=== PATIENT | female | born 1955 | race Caucasian/White ===

== ENCOUNTER 2016-10-01 15:00 | Inpatient (IN) | payer OTHER ==
--- NOTE | ~2016-10-01 | HP ---
Unit #: [id number] #: [id number] Patient: MILAGRO ASIF [id number] [place] [address] [id number] MR#: [id number] NAME: MILAGRO ASIF ROOM: P263 Age: 60 Sex: F Admission Date: 10/01/2016 : 1955 Attending Physician: Hoang Morales M.D. Admitting Physician: Hoang Morales M.D. Primary Care Physician: Kristan Florence M.D. HISTORY AND PHYSICAL HISTORY OF PRESENT ILLNESS Milagro is a 60 year old admitted to [address] [place] [address] with depression verbalizing wanting to hurt herself. PAST MEDICAL HISTORY Hyperlipidemia. PAST SURGICAL HISTORY 1. Cholecystectomy. 2. Tubal ligation. 3. Hiatal hernia repair. ALLERGIES Morphine. SOCIAL HISTORY She denies cigarettes, alcohol, and illicit drug use. FAMILY HISTORY Medically noncontributory. REVIEW OF SYSTEMS CONSTITUTIONAL: No fever or chills. HEENT: Denies any sore throat, ear pain or runny nose. CARDIOVASCULAR: Denies chest pain, irregular heart rhythm or palpitations. CHEST: Denies shortness of breath or cough. No hemoptysis. GASTROINTESTINAL: Denies nausea, vomiting, diarrhea or chronic constipation. ENDOCRINE: Denies history of increased thirst or urination. No recent significant weight loss or gain. GENITOURINARY: Denies dysuria, frequency, or hematuria. SKIN: Denies any rashes. HEMATOLOGIC: Denies history of increased bleeding or bruising. MUSCULOSKELETAL: Denies any hot, swollen joints. No generalized muscle pain. NEUROLOGIC: Denies problems with vision or speech. No frequent, severe headaches. No numbness, tingling or weakness in any extremities. Denies loss of bladder or bowel control. CURRENT MEDICATIONS 1. Zoloft 200 mg q.h.s. 2. Lipitor 40 mg q.h.s. 3. Neurontin 300 mg t.i.d. Unit #: [id number] #: [id number] Patient: MILAGRO ASIF 4. Vistaril 50 mg t.i.d. 5. Nicotine patch 21 mg q. day. 6. Protonix 40 mg q. day. 7. Desyrel p.r.n. 8. Milk of Magnesia p.r.n. 9. Maalox p.r.n. 10. Tylenol p.r.n. 11. Albuterol nebs q . 4 hours p.r.n. 12. Percocet 10/325 1 tab q.i.d. p.r.n. PHYSICAL EXAMINATION GENERAL: Alert, well nourished. No apparent distress. VITAL SIGNS: Blood pressure 140/84, heart rate 88, respirations 16, and temperature 98.6. WEIGHT: 158. HEIGHT: 5 feet 7 inches. SKIN: Warm and dry without rash or lesion. HEENT: Normocephalic. TMs not viewed. Oral and nasal passages clear. Conjunctivae clear. PERRLA. EOMs intact. NECK: Supple without lymphadenopathy or thyromegaly. HEART: Regular rate and rhythm without murmur. LUNGS: Clear. ABDOMEN: Soft, nontender. : Not done. EXTREMITIES: No evidence of cyanosis, clubbing or edema. Moves all without focal deficit. NEUROLOGICAL: Grossly within normal limits. Cranial Nerves: II: Visual green are intact. III, IV AND : Extraocular movements are intact. Pupils are equal, round and reactive to light. V: Facial sensation is grossly normal. VII: Facial movements and expression are normal. VIII: Auditory acuity grossly intact. IX, X: Uvula is midline. Phonation is normal. XI: Patient shrugs shoulders and turns head normally. XII: Tongue protrudes in the midline. Sensory and Motor Function: Sensory and motor sensation is grossly normal. Motor: moves all extremities well. Coordination: Gait is normal. Deep Tendon Reflexes: Intact. IMPRESSION Psychiatric admission. RECOMMENDATIONS PSYCHIATRIC: Per psychiatrist. MEDICAL: I see no contraindication to participate in this facility's activities. MEDICAL PROGNOSIS Good. MEDICAL CONDITION Stable. Dictated by... Chichi Francisco P.A.-C. for Unit #: [id number] #: [id number] Patient: MILAGRO ASIF Angel Camacho/lisa TD: 10/02/2016 15:22 JOB #: [id number] HISTORY AND PHYSICAL Page 1 of 1 X Chichi Francisco HISTORY AND PHYSICAL
--- NOTE | ~2016-10-01 | DS ---
Unit #: [id number] #: [id number] Patient: ARNOL ASIF [id number] [facility] [address] [place] [address] [id number] MR#: [id number] NAME: ARNOL ASIF. ROOM: [facility] Age: 60 Sex: F Admission Date: 10/01/2016 : 1955 Discharge Date: 10/03/2016 Attending Physician: Hoang Morales M.D. Primary Care Physician: Kristan Florence M.D. DISCHARGE SUMMARY REASON FOR ADMISSION Depression. DIAGNOSTIC STUDIES LABORATORY RESULTS: Unremarkable. HOSPITAL COURSE The patient was admitted to inpatient unit on 10/01/2016 and discharged on 10/03/2016. The patient was treated on the inpatient unit with group therapy, individual therapy, and medication management. The patient was able to maintain safe behavior. Denied any suicidal or homicidal ideation. The patient was subsequently discharged with a plan to follow up in outpatient program. DISCHARGE MEDICATIONS Trazodone 100 mg at bedtime for sleep, Zoloft 200 mg at bedtime for depression, Vistaril 50 mg t.i.d. for anxiety, and Neurontin 300 mg t.i.d. for anxiety symptom. DISCHARGE DIAGNOSES Psychiatric: Major depressive disorder, recurrent, moderate, F33.2 and anxiety disorder, not otherwise specified, F41.9. Secondary diagnosis: Deferred. Medical diagnoses: Hypertension, type 2 diabetes mellitus, and high cholesterol. Stressors: Psychosocial stressors. DISCHARGE INSTRUCTIONS The patient to follow up in outpatient clinic as per social science instructor. CONDITION ON DISCHARGE The patient was pleasant and cooperative. Denied any psychotic symptom or any suicidal ideation. PROGNOSIS Guarded. DIET AND ACTIVITY As tolerated. Unit #: [id number] #: [id number] Patient: ARNOL ASIF Dictated by... Hoang Morales M.D. SZC/modl TD: 10/04/2016 22:25 JOB #: [id number] DISCHARGE SUMMARY Page 1 of 1 X Hoang Morales MD DISCHARGE SUMMARY
--- NOTE | ~2016-10-01 | PN ---
Unit #: [id number] #: [id number] Patient: ARNOL ASIF [id number] [facility] [address] [place] [address] [id number] MR#: [id number] NAME: ARNOL ASIF. ROOM: [facility] Age: 60 Sex: F Admission Date: 10/01/2016 : 1955 Attending Physician: Hoang Morales M.D. Admitting Physician: Hoang Morales M.D. Primary Care Physician: Angel Solorio PROGRESS NOTES DATE OF SERVICE 10/02/2016 DISCUSSION Ms. Humphrey is a 60-year-old female seen on 10/02/2016. Patient interviewed, chart reviewed, I obtained information from nursing staff. Patient continues to report feeling sad, depressed, anxious, withdrawn, isolative, flat affect. Dressed in hospital attire. COMPLETE REVIEW OF SYSTEMS Unremarkable. MENTAL STATUS EXAMINATION GENERAL APPEARANCE: Patient dressed casually. ATTENTION SPAN AND CONCENTRATION: Fair. Oriented in time, place and person. MOOD AND AFFECT: Sad, depressed. SPEECH: Monotone. THOUGHT PROCESS: [facility]. Patient denied any thoughts of harming others, but still having passive SI, withdrawn, isolative, anxious. RECENT AND REMOTE MEMORY: Poor. INSIGHT AND JUDGMENT: Poor. DIAGNOSIS Major depressive disorder, recurrent, severe Anxiety disorder, NOS ASSESSMENT/PLAN Advised to continue with current medication and therapeutic protocol. If needed, consider further adjustment in medication. Dictated by... Angel Richey/rai TD: 10/02/2016 20:20 JOB #: [id number] Unit #: [id number] #: [id number] Patient: ARNOL ASIF EMELY PROGRESS NOTES Page 1 of 1 X Hoang Morales MD X PROGRESS NOTE
--- NOTE | ~2016-10-01 | PA ---
Unit #: [id number] #: [id number] Patient: ARNOL ASIF [id number] [facility] [address] [place] [address] [id number] MR#: [id number] NAME: ARNOL ASIF. ROOM: [facility] Age: 60 Sex: F Admission Date: 10/01/2016 : 1955 Date of Assessment: 10/02/2016 Attending Physician: Hoang Morales M.D. Admitting Physician: Hoang Morales M.D. Primary Care Physician: Kristan Florence M.D. PSYCHIATRIC ASSESSMENT INFORMANTS The patient's reliability, fair; chart reliability, good. CHIEF COMPLAINT Depression. HISTORY OF PRESENT ILLNESS Ms. Humphrey is a 60-year-old female, presented with the above-mentioned complaint. The patient was at [facility] on the eighth floor on a 72-hour hold for suicide attempt. The patient took overdose of amitriptyline. The patient reported that she was found unresponsive at home and family member reported the patient was surrounded by empty bottles and a suicide note. The patient reported that she is stressed out because grandson's mother would not allow her to see her grandchild. The patient feels that she has no support. The patient reported suicidal ideation, feeling sad, depressed, anxious. The patient denied any homicidal ideation or psychotic symptom. Denied any use of drugs or alcohol. Needing inpatient admission at this time for psychiatric stabilization. PAST PSYCHIATRIC HISTORY Remarkable for history of previous treatment at [facility] for suicide attempt. No details known at this time. FAMILY HISTORY AND SOCIAL HISTORY The patient has a poor support from family. History of depression in mother. No known history of any abuse. MEDICAL HISTORY Remarkable for hypertension, diabetes mellitus type 2, high cholesterol. Musculoskeletal; muscle strength and tone, no atrophy or abnormal movement. Gait normal. MEDICATION HISTORY The patient is on insulin, amlodipine, Levemir, Zofran, hydralazine, baclofen, Prilosec, Lipitor, lorazepam, acetaminophen, amitriptyline, and sertraline. ALLERGIES No known drug allergies. SUBSTANCE ABUSE HISTORY None. Unit #: [id number] #: [id number] Patient: ARNOL ASIF REVIEW OF SYSTEMS HEENT: Eyes, clear. Ears, nose, mouth, and throat; clear. CARDIOVASCULAR: Unremarkable. RESPIRATORY: Unremarkable. GI: Unremarkable. : Unremarkable. SKIN: Unremarkable. LYMPH NODE: Unremarkable. NEUROLOGIC: Unremarkable. ENDOCRINE: Unremarkable. HEMATOLOGIC: Unremarkable. ALLERGIC/IMMUNOLOGIC: Unremarkable. MUSCULOSKELETAL: Muscle strength and tone, no atrophy or abnormal movement. Gait normal. MENTAL STATUS EXAMINATION CONSTITUTIONAL: Measurement of vital signs; temperature 98.3, pulse 88, respirations 16, oxygen saturation 98%, and blood pressure 140/82. Height 5 feet 7 inches, weight 158 pounds. GENERAL APPEARANCE: The patient dressed casually. The patient did not show any facial deformity. MUSCULOSKELETAL: Please see above. PSYCHIATRIC EXAMINATION Description of speech; regular rate, normal volume, normal articulation, coherent. Description of thought process, goal directed. Description of association, intact. Description of abnormal psychotic thinking; the patient denied any hallucination or delusions, but mood lability, sad, depressed. Description of the patient's judgment; concerning everyday activity, poor. Social situation, poor. Concerning psychiatric condition, poor. Complete mental status examination; oriented in time, place, and person. Recent and remote memory, fair. Attention span and concentration, fair. Language, able to name object and repeat phrases. Fund of knowledge, aware of current event and passive vocabulary intact. Mood and affect, sad and dysphoric. Insight and judgment, fair to poor. ASSETS AND LIABILITIES Assets; the patient is articulate and able to take care of her ADL. Liability; history of depression. ADMITTING DIAGNOSES Psychiatric: 1. Major depressive disorder, recurrent, severe, F33.2. 2. Anxiety disorder, not otherwise specified, F41.9. Secondary diagnosis: Deferred. Medical diagnoses: Hypertension, diabetes type 2, high cholesterol. Stressors: Psychosocial stressors. PSYCHIATRIC PLAN AND TREATMENT GOAL 1. Advised to admit the patient on the inpatient unit. Provide safe, supportive, and structured environment. 2. Ordered labs; CBC, CMP, UA, and UDS. 3. Precaution for self-harm. Unit #: [id number] #: [id number] Patient: ARNOL ASIF 4. The patient to attend all the programming with group therapy, individual therapy, family therapy if possible. 5. Continue with current medication with a plan to consider adding Neurontin 300 mg t.i.d. for anxiety, Vistaril 50 mg t.i.d. Advised to discontinue Klonopin. Zoloft increased to 200 mg at bedtime. Continue with the other medication. 6. Monitor for side effects for any sedation and accordingly adjust the medication. Treatment goal to attain euthymic mood, gain insight into her problem, and learn coping skills. DISCHARGE PLAN Plan to stabilize the patient and consider followup in outpatient program. ESTIMATED LENGTH OF STAY 2 weeks. Dictated by... Angel Richey/ethan TD: 10/03/2016 02:53 JOB #: [id number] PSYCHIATRIC ASSESSMENT Page 1 of 1 X Hoang Morales MD X PSYCHIATRIC ASSESSMENT
[~2016-10-01 15:00] MED LIST: ALPRAZOLAM PO; ASPIRIN81 M2 PO; AZULFIDINE500 M1 PO; BUSPAR PO; CITRACAL + D M1 EACH PO; CITRACAL200 MG; COMBIVENT U/D3 ML INH; COREG3.125 MG PO; CRESTOR PO; CULTURELLE CAP1 EACH PO; EC-NAPROSYN500 MG PO; ENBREL50 MG/ML SQ; FOLIC ACID PO; ISOSORBIDE DINI30 MG PO; KEFLEX PO; KLONOPIN2 MG PO; LORTAB 10/500 T1 TAB PO; LORTAB 7.5-5001 TAB PO; METHOTREXATE2.5 MG PO; NEXIUM PO; NITROGYLCERIN SUBLINGUAL; OCUVITE TABLET1 TA1 PO; OMEPRAZOLE20 M2 PO; OPTIVE SENSITI1 EACH OP; PERCOCET PO; PHENERGAN25 M1 PO; PLAQUENIL200 MG PO; PREMPRO PO; SOMA PO; TRAZODONE PO; VITAMIN B12 INJ; VITAMIN D 4001 UDTAB PO; ZETIA PO; ZOLOFT PO; ZYRTEC10 M2 PO
== END 2016-10-03 14:15 | disposition home or self-care (01) | DRG 885 ==
LOC: P2L 21:51
DX: F33.2 Major depressive disorder, recurrent severe without psychotic features (principal); E11.9 Type 2 diabetes mellitus without complications; R45.851 Suicidal ideations; F41.9 Anxiety disorder, unspecified; I10 Essential (primary) hypertension; E78.00 Pure hypercholesterolemia, unspecified; T43.012D Poisoning by tricyclic antidepressants, intentional self-harm, subsequent encounter; Z81.8 Family history of other mental and behavioral disorders; Z79.4 Long term (current) use of insulin; Z90.49 Acquired absence of other specified parts of digestive tract; Z98.51 Tubal ligation status; E78.5 Hyperlipidemia, unspecified; Z88.5 Allergy status to narcotic agent